=== PATIENT | female | born 1980 | race Caucasian/White ===

== ENCOUNTER 2021-08-20 10:51 | Inpatient (IN) | payer OTHER ==
[~2021-08-20] VITALS: Ht 170.2 cm; Wt 71.7 kg
[~2021-08-20 10:51] MED LIST: LEVAQUIN500 MG PO; XOPENEX1.25 MG/0. IH
[2021-08-20] MEDS ORDERED: FOLIC ACID20 MG PO (14:32)
[2021-08-20] MEDS ORDERED: PRENATAL TABLE1 EAC3 PO (14:32)
[2021-08-20] MEDS ORDERED: METAMUCIL0.4 GM PO (14:34)
== END 2021-08-22 09:44 | disposition home or self-care (01) | DRG 833 ==
LOC: NST 10:51 → LDR 11:24 → OB/GYN 08-21 11:39
PROVIDERS: ADMIT Obstetrics & Gynecology; ATTEND Obstetrics & Gynecology
PROC: BU4CZZZ Ultrasonography of Uterus and Ovaries (ICD-10-PCS; principal; 2021-08-20)
PROC: BY4CZZZ Ultrasonography of Second Trimester, Single Fetus (ICD-10-PCS; 2021-08-20)
PROC: 4A1HXCZ Monitoring of Products of Conception, Cardiac Rate, External Approach (ICD-10-PCS; 2021-08-20)
DX: O60.02 Preterm labor without delivery, second trimester (principal); O26.842 Uterine size-date discrepancy, second trimester; Z20.822 Contact with and (suspected) exposure to COVID-19

== ENCOUNTER 2021-08-29 15:34 | Outpatient (CLI) | payer OTHER ==
[~2021-08-29 15:34] MED LIST changes: +FOLIC ACID20 MG PO; +METAMUCIL0.4 GM PO; +PRENATAL TABLE1 EAC3 PO
== END 2021-08-29 16:32 | disposition home or self-care (01) ==
LOC: NST 15:34
PROVIDERS: ATTEND Obstetrics & Gynecology
DX: Z34.82 Encounter for supervision of other normal pregnancy, second trimester (principal)

== ENCOUNTER 2021-09-10 13:00 | Outpatient (CLI) | payer OTHER | END 2021-09-10 13:19 | disposition home or self-care (01) | LOC: NST 13:00 | PROVIDERS: ATTEND Obstetrics & Gynecology Maternal & Fetal Medicine | DX: Z34.83 Encounter for supervision of other normal pregnancy, third trimester (principal) ==

== ENCOUNTER 2021-11-08 15:28 | Outpatient (CLI) | payer OTHER | END 2021-11-08 16:35 | disposition home or self-care (01) | LOC: NST 15:28 | PROVIDERS: ATTEND Obstetrics & Gynecology Maternal & Fetal Medicine | DX: Z34.83 Encounter for supervision of other normal pregnancy, third trimester (principal) ==

== ENCOUNTER 2021-11-15 09:57 | Outpatient (CLI) | payer OTHER | END 2021-11-15 10:29 | disposition home or self-care (01) | LOC: NST 09:57 | PROVIDERS: ATTEND Obstetrics & Gynecology Maternal & Fetal Medicine | DX: Z34.83 Encounter for supervision of other normal pregnancy, third trimester (principal) ==

== ENCOUNTER 2021-11-19 16:03 | Inpatient (IN) | payer OTHER ==
[~2021-11-19] VITALS: Ht 170.2 cm; Wt 3.2 kg
== END 2021-11-27 14:55 | disposition home or self-care (01) | DRG 787 ==
LOC: OB/GYN 16:03 → LDR 18:50 → OB/GYN 18:50 → LDR 21:27 → OB/GYN 11-20 02:31
PROVIDERS: Obstetrics & Gynecology Gynecology; ADMIT Obstetrics & Gynecology Maternal & Fetal Medicine; ATTEND Obstetrics & Gynecology Maternal & Fetal Medicine
PROC: 4A1HXCZ Monitoring of Products of Conception, Cardiac Rate, External Approach (ICD-10-PCS; 2021-11-19)
PROC: 10D00Z1 Extraction of Products of Conception, Low, Open Approach (ICD-10-PCS; principal; 2021-11-19 20:15)
PROC: BW21ZZZ Computerized Tomography (CT Scan) of Abdomen and Pelvis (ICD-10-PCS; 2021-11-23)
DX: O76 Abnormality in fetal heart rate and rhythm complicating labor and delivery (principal); O41.03X0 Oligohydramnios, third trimester, not applicable or unspecified; O77.0 Labor and delivery complicated by meconium in amniotic fluid; O69.81X0 Labor and delivery complicated by cord around neck, without compression, not applicable or unspecified; O16.4 Unspecified maternal hypertension, complicating childbirth; O62.0 Primary inadequate contractions; Z3A.40 40 weeks gestation of pregnancy; Z37.0 Single live birth; Z20.822 Contact with and (suspected) exposure to COVID-19

== ENCOUNTER → 2021-11-19 | Outpatient (CLI) | payer OTHER | END | disposition home or self-care (01) | LOC: NST 14:50 | PROVIDERS: ATTEND Obstetrics & Gynecology Maternal & Fetal Medicine | DX: Z34.83 Encounter for supervision of other normal pregnancy, third trimester (principal) ==

== ENCOUNTER 2023-09-28 07:54 | Outpatient (CLI) | payer OTHER | END 2023-09-28 07:56 | disposition home or self-care (01) | LOC: NUCLEAR 07:54 | PROVIDERS: ATTEND Internal Medicine Hematology & Oncology | DX: C50.412 Malignant neoplasm of upper-outer quadrant of left female breast (principal) ==